=== PATIENT | male | born 1990 | race Caucasian/White ===

== ENCOUNTER 2019-12-18 00:17 | Emergency (ER) | payer OTHER ==
[~2019-12-18] VITALS: Ht 180.3 cm; Wt 50.8 kg
[2019-12-18 00:18] VITALS: BP 128/72
== END 2019-12-18 01:32 | disposition home or self-care (01) ==
LOC: ER 00:17
DX: J11.1 Influenza due to unidentified influenza virus with other respiratory manifestations (principal); F17.210 Nicotine dependence, cigarettes, uncomplicated